=== PATIENT | male | born 1985 | race Two or more races ===

== ENCOUNTER 2016-06-16 07:27 | Day surgery (SDC) | payer OTHER ==
[~2016-06-16 07:27] MED LIST: DEXAMETHASONE SOD PHOS INJ 10 MG/1 ML VIAL ONE; FENTANYL CITRATE INJ/PF 250 MCG/5 ML AMPULE ONE; LIDOCAINE 1%/EPINEPHRINE INJ 20 ML VIAL ONE; METOCLOPRAMIDE HCL INJ/PF 10 MG/2 ML SDV ONE; MIDAZOLAM 2 MG/2 ML INJ ONE; ONDANSETRON HCL INJ/PF 4 MG/2 ML SDV ONE; OXYMETAZOLINE HCL 0.05% NASAL SPRAY 15 ML BOTTLE ONE; PROPOFOL INJ 200 MG/20 ML VIAL IV ONE; SUCCINYLCHOLINE CHLORIDE INJ 200 MG/10 ML VIAL ONE
[2016-06-16] MEDS ORDERED: DEXAMETHASONE SOD PHOS INJ 10 MG/1 ML VIAL ONE (08:14)
[2016-06-16] MEDS ORDERED: WATER FOR INJECTION,STERILE 10 ML SDV ONE (08:14)
[2016-06-16] MEDS ORDERED: HYDROCODONE/ACETAMINOPHEN 5-325 MG TABLET ONE (09:38)
--- NOTE | 2016-06-16 10:04 | SURGICARE OPERATIVE REPORT E ---
[facility] NAME: MANUEL NAGEL AGE: 31Y DATE OF SURGERY: 06/16/2016 ROOM: PREOPERATIVE DIAGNOSIS: Bilateral frontal sinusitis with nasal polyposis. POSTOPERATIVE DIAGNOSIS: Bilateral frontal sinusitis with nasal polyposis. PROCEDURE: 1. Bilateral endoscopic revision frontal sinusotomies, balloon assisted. 2. CT based image guidance for revision sinus surgery and dissection along the skull base. SURGEON: SIM GOLD M.D. ANESTHESIA: General endotracheal. ESTIMATED BLOOD LOSS: 25 mL. COMPLICATIONS: None. INTRAOPERATIVE FINDINGS: 1. Status post bilateral full endoscopic sinus surgery. 2. 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 3. 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 INDICATIONS FOR PROCEDURE: A 31-year-old male who is status post complete endoscopic sinus surgery for chronic sinusitis with nasal polyposis 7 months ago who has had persistent left-sided frontal congestion and occasional pain. This is despite localized steroid delivery and prednisone. PROCEDURE IN DETAIL: The patient was met in the preoperative holding area. All his questions were answered. Consent was verified. He was then brought back to the operating room and placed supine on the operating room table, and general endotracheal anesthesia was induced without difficulty. The table was turned and positioned for endoscopic sinus surgery. The nasal cavity was decongested with oxymetazoline and a [employer] fusion image guided headpiece was placed on his forehead and the system was calibrated to his most recent CT of the sinuses using external landmarks. Accuracy was similarly verified. Image guided balloon and frontal sinus seeker were used through the procedure. He was prepped and draped in the standard fashion. A preoperative time out was performed. He was positioned for frontal sinus surgery and a 30-degree endoscope with angled suctions were used. The axilla of the middle turbinates was infiltrated with 1% lidocaine with 1:100,000 epinephrine under endoscopic guidance. The frontal outflow of the left side was visualized. A left kristin bullosa was collapsed with a large polyp forceps in order to aid visualization and access. A [employer] frontal balloon on an image guided probe was then passed onto the frontal outflow tract and to the frontal sinus with both visual and image guidance confirmation and an inflated twice for 30 seconds approximately. The balloon was then removed aiding visualization and frontal sinus punch was used to remove the polypoid disease mostly from the medial and posterior aspect of the tract. The frontal sinus was widely patent. The right side was then similarly approached. The kristin bullosa was medialized and partially resected on this side. There was a narrower outflow but less polypoid disease on the right side. Balloon assisted frontal sinusotomy was carried out. I initially inflated the balloon at the outflow tract and then removed polypoid disease and enlarged the ostium with frontal sinus punch. Hemostasis was verified on both sides and Stammberger Sinu-Foam placed as a spacer reconstituted with dexamethasone. The nasal cavity and nasopharynx were suctioned, and he was turned over to the Anesthesia team for reversal and extubation. He tolerated the procedure well. DICTATING PHYSICIAN: SIM GOLD M.D. [id number] PHY#: [id number] ID: [id number] JOB#: [id number] ACCT: [id number] cc:SIM GOLD M.D. > MTDD
[2016-06-16] MEDS ORDERED: LIDOCAINE 0.5% INJ-PF (5 MG/ML) 50 ML SDV ONE (11:38)
== END 2016-06-16 10:36 | disposition home or self-care (01) ==
LOC: SC 07:27
PROVIDERS: ATTEND Otolaryngology
PROC: 095K4ZZ Destruction of Nasal Mucosa and Soft Tissue, Percutaneous Endoscopic Approach (ICD-10-PCS; principal; 2016-06-16 07:30)
DX: J32.1 Chronic frontal sinusitis (principal); J33.8 Other polyp of sinus; J34.89 Other specified disorders of nose and nasal sinuses; J45.909 Unspecified asthma, uncomplicated; R01.1 Cardiac murmur, unspecified; Z79.51 Long term (current) use of inhaled steroids
CPT/HCPCS: 31240; J2250; J3010; J3490 ×4; J2765; J0330; J2405; J2704; J1100; 160